=== PATIENT | female | born 1960 | race Caucasian/White ===

== ENCOUNTER → 2023-09-12 13:28 | Outpatient (REF) | payer MEDICARE, OTHER, SELFPAY | LOC: HWRAD 13:28 | PROVIDERS: ATTENDING PHYSICIAN Family Medicine | DX: R91.1 Solitary pulmonary nodule (principal); M54.16 Radiculopathy, lumbar region; M54.12 Radiculopathy, cervical region; M25.551 Pain in right hip; M25.552 Pain in left hip | CPT/HCPCS: 71270; 73523; Q9967 ==

== ENCOUNTER → 2023-11-06 10:27 | Outpatient (REF) | payer MEDICARE, OTHER, SELFPAY | LOC: PAVMRI 10:27 | PROVIDERS: ATTENDING PHYSICIAN Family Medicine | DX: R91.1 Solitary pulmonary nodule (principal); M54.16 Radiculopathy, lumbar region; M54.12 Radiculopathy, cervical region; M25.551 Pain in right hip; M25.552 Pain in left hip | CPT/HCPCS: 72141; 72148 ==

== ENCOUNTER → 2024-01-08 11:14 | Outpatient (REF) | payer MEDICARE, OTHER, SELFPAY | LOC: HWRAD 11:14 | PROVIDERS: ATTENDING PHYSICIAN Family Medicine | DX: R91.1 Solitary pulmonary nodule (principal) | CPT/HCPCS: 71270; Q9967 ==

== ENCOUNTER → 2024-04-14 13:38 | Outpatient (REF) | payer MEDICARE, OTHER, SELFPAY | LOC: EMG 13:38 | PROVIDERS: ATTENDING PHYSICIAN Specialist; FAMILY PHYSICIAN Family Medicine | DX: R20.0 Anesthesia of skin (principal); M54.16 Radiculopathy, lumbar region | CPT/HCPCS: 95886; 95909 ==

== ENCOUNTER → 2024-04-23 13:55 | Outpatient (REF) | payer MEDICARE, OTHER, SELFPAY | LOC: HWWDC 13:55 | PROVIDERS: ATTENDING PHYSICIAN Family Medicine | DX: Z12.31 Encounter for screening mammogram for malignant neoplasm of breast (principal) | CPT/HCPCS: 77063; 77067 ==

== ENCOUNTER → 2024-06-05 13:11 | Outpatient (REF) | payer MEDICARE, OTHER, SELFPAY | LOC: HWRAD 13:11 | PROVIDERS: ATTENDING PHYSICIAN Family Medicine | DX: M25.552 Pain in left hip (principal); M25.551 Pain in right hip | CPT/HCPCS: 73523; 73552 ==